=== PATIENT | female | born 1955 | race Caucasian/White ===

== ENCOUNTER 2017-04-05 09:29 | Day surgery (SDC) | payer OTHER ==
[~2017-04-05] VITALS: Ht 157.5 cm; Wt 68.5 kg
[2017-04-05] MEDS ORDERED: TRAM50TA94 PO (13:56)
[2017-04-05] MEDS ORDERED: METF500T64 PO (13:56)
[2017-04-05] MEDS ORDERED: PREG300C PO (13:56)
[2017-04-05] MEDS ORDERED: IBUP-2213 PO (13:56)
[2017-04-05] MEDS ORDERED: INSU-1163 SQ (13:56)
== END 2017-04-05 14:10 | disposition home or self-care (01) ==
LOC: MOR 09:29 → MMU 09:30 → MOR 14:10
PROVIDERS: ATTEND Internal Medicine Gastroenterology
DX: K63.5 Polyp of colon (principal); K57.30 Diverticulosis of large intestine without perforation or abscess without bleeding; K21.9 Gastro-esophageal reflux disease without esophagitis; I10 Essential (primary) hypertension; E11.9 Type 2 diabetes mellitus without complications; E66.3 Overweight; G43.909 Migraine, unspecified, not intractable, without status migrainosus; F17.210 Nicotine dependence, cigarettes, uncomplicated; Z91.09 Other allergy status, other than to drugs and biological substances; Z88.0 Allergy status to penicillin; Z79.84 Long term (current) use of oral hypoglycemic drugs; Z79.899 Other long term (current) drug therapy; Z68.28 Body mass index [BMI] 28.0-28.9, adult
CPT/HCPCS: 82948